=== PATIENT | male | born 1990 | race Caucasian/White ===

== ENCOUNTER 2019-07-22 18:53 | Emergency (ER) | payer OTHER, SELFPAY ==
[2019-07-22 19:06] VITALS: BP 133/79; PULSE 57; RESP 16; TEMP 36.9; O2SAT 96
--- NOTE | 2019-07-22 19:38 | ED.MALEGU ---
HPI - Male Genitourinary General Chief complaint: Urogenital-Male <Karis Danielle PA-C - Last Filed: 07/22/19 20:40> Stated complaint: urinary problems <Karis Danielle PA-C - Last Filed: 07/22/19 20:40> Time Seen by Provider: 07/22/19 19:03 <Karis Danielle PA-C - Last Filed: 07/22/19 20:40> Source: patient <Karis Danielle PA-C - Last Filed: 07/22/19 20:40> Mode of arrival: ambulatory <Karis Danielle PA-C - Last Filed: 07/22/19 20:40> Limitations: no limitations <Karis Danielle PA-C - Last Filed: 07/22/19 20:40> History of Present Illness HPI Narrative: Patient presents with chief complaint of 1 week of urinary symptoms. Patient states at times he goes to the bathroom and he urinates a little bit and other times he goes to the bathroom and urinates a lot. Patient states that his symptoms started last Monday. Patient originally reported that he had not been seen for anybody regarding his symptoms. Then patient reports he was tested for STDs 3 days ago at a clinic and [place]. Patient denies any penile ulcers or mucus. Patient denies any penile bleeding, rashes, itching or discharge. Patient denies nausea, vomiting, abdominal pain.Patient reports he does drink lots of caffeine soda. Patient denies recreational drug use or smoking. <Karis Danielle PA-C - Last Filed: 07/22/19 20:40> Related Data Home medications: Home Medications Medication Instructions Recorded Confirmed No Home Medications 07/22/19 07/22/19 <Karis Danielle PA-C - Last Filed: 07/22/19 20:40> Allergies/Adverse reactions: Allergies Allergy/AdvReac Type Severity Reaction Status Date / Time No Known Allergies Allergy Verified 07/22/19 19:09 <Karis Danielle PA-C - Last Filed: 07/22/19 20:40> Review of Systems Review of Systems: Narrative: CONSTITUTIONAL: Denies fever, chills, or sweats. EYES: Denies visual changes, redness, or discharge. ENT: Denies rhinorrhea, congestion, sore throat, or otalgia. CARDIOVASCULAR: Denies chest pain, palpitations, or edema. RESPIRATORY: Denies cough or dyspnea. GASTROINTESTINAL: Denies abdominal pain, nausea, vomiting, or diarrhea. GENITOURINARY: Reports dysuria denies hematuria. SKIN: Denies rash or itching. MUSCULOSKELETAL: Denies back pain, joint pain, or myalgia. NEUROLOGIC: Denies headache, numbness, dizziness, or weakness. PSYCHIATRIC: Denies anxiety or depression. <Karis Danielle PA-C - Last Filed: 07/22/19 20:40> [facility] Social History Social History: Social History Gender identity (if verbalized by the patient): Male <Karis Danielle PA-C - Last Filed: 07/22/19 20:40> Exam Narrative: Exam Narrative: GENERAL: Well-appearing, well-nourished. Patient appears anxious. Patient speaks fast and continues to change his story. His speech is not organized. Patient does not appear to be in discomfort HEAD: Normocephalic, atraumatic. EYES: PERRLA and EOMI. ENT: Nares clear, no rhinorrhea or epistaxis. CHEST: Clear to auscultation. No respiratory distress. No wheezes rales or rhonchi HEART: Regular rate and rhythm. ABDOMEN: Soft, nontender, nondistended, normal active bowel sounds. GENITAL: Patient declined. EXTREMITIES: Normal range of motion. No edema. SKIN: Warm, dry, no rash. NEURO: No focal deficits. Alert and oriented x3. PSYCH: Normal mood and affect. <Karis Danielle PA-C - Last Filed: 07/22/19 20:40> Course Course Emergency Course: Patient states that he was treated with a shot into pills when he went to the clinic 3 days ago to be tested and treated for STDs. <Karis Danielle PA-C - Last Filed: 07/22/19 20:40> Vital Signs Vital signs: Vital Signs Temperature 36.9 C 07/22/19 19:06 Pulse Rate 57 L 07/22/19 19:06 Respiratory Rate 16 07/22/19 19:06 Blood Pressure 133/79 07/22/19 19:06 Pulse Oximetry 96 07/22/19 19:06 Temperature 37.1 C 07/22/19 20:51 Pulse Rate 61 07/22/19
[2019-07-22 19:53] LABS: Add Urine Microscopic? YES; Appearance Urine Cloudy (Clear); Bilirubin Urine Negative (Negative); Blood Urine Negative (Negative); Budding Yeast Urine Present /hpf; Color Urine Yellow (Yellow); Glucose Urine UA Negative (Negative); Ketones Urine Trace mg/dL (Negative); Leukocyte Esterase Ur Negative LEU/UL (Negative); Mucus Urine Few /lpf; Nitrate Urine Negative (Negative); Protein Urine 2+ mg/dL (Negative); RBC Urine 0-2 /hpf (0-2); Specific Grav Ur 1.029 (1.001-1.035)
[2019-07-22 20:35] LABS: Glucose Point of Care 120 (65-105)
[2019-07-22 20:51] VITALS: BP 131/72; PULSE 61; RESP 16; TEMP 37.1; O2SAT 98
== END 2019-07-22 20:53 | disposition home or self-care (01) ==
PROVIDERS: Physician Assistant; Emergency Provider Emergency Medicine
DX: N32.89 Other specified disorders of bladder (principal)
CPT/HCPCS: 81001; 82948; 87491; 87591; 99283